=== PATIENT | female | born 1990 | race Caucasian/White ===

== ENCOUNTER 2022-10-17 14:52 | Outpatient (CLI) | payer OTHER | END 2022-10-17 15:25 | disposition home or self-care (01) | LOC: NST 14:52 | PROVIDERS: ATTEND Obstetrics & Gynecology Gynecology | DX: Z34.83 Encounter for supervision of other normal pregnancy, third trimester (principal) ==

== ENCOUNTER 2022-10-18 12:00 | Inpatient (IN) | payer OTHER ==
[~2022-10-18] VITALS: Ht 162.6 cm; Wt 3.2 kg
[2022-10-23] MEDS ORDERED: PRENATAL 19 CH1 EAC1 PO (06:25)
== END 2022-10-25 17:17 | disposition home or self-care (01) | DRG 785 ==
LOC: O/R 10-23 05:51 → OB/GYN 10-23 05:51 → SURH 10-28 12:00
PROVIDERS: ADMIT Obstetrics & Gynecology Gynecology; ATTEND Obstetrics & Gynecology Gynecology
PROC: 0UB70ZZ Excision of Bilateral Fallopian Tubes, Open Approach (ICD-10-PCS; 2022-10-23)
PROC: 4A1HXCZ Monitoring of Products of Conception, Cardiac Rate, External Approach (ICD-10-PCS; 2022-10-23)
PROC: 10D00Z1 Extraction of Products of Conception, Low, Open Approach (ICD-10-PCS; principal; 2022-10-23 08:00)
DX: O32.1XX0 Maternal care for breech presentation, not applicable or unspecified (principal); O99.824 Streptococcus B carrier state complicating childbirth; Z3A.39 39 weeks gestation of pregnancy; Z37.0 Single live birth; Z30.2 Encounter for sterilization; Z20.822 Contact with and (suspected) exposure to COVID-19